=== PATIENT | male | born 1935 | race Caucasian/White ===

== ENCOUNTER → 2023-11-04 12:50 | Outpatient (REF) | payer OTHER, SELFPAY | LOC: DHCBC HW 12:50 | PROVIDERS: ATTENDING PHYSICIAN Internal Medicine; FAMILY PHYSICIAN Family Medicine | DX: I34.2 Nonrheumatic mitral (valve) stenosis (principal); I48.0 Paroxysmal atrial fibrillation | CPT/HCPCS: 93306 ==

== ENCOUNTER 2024-02-24 08:31 | Emergency (ER) | payer OTHER, SELFPAY ==
[2024-02-24 08:36] VITALS: BP 128/77
--- NOTE | 2024-02-24 09:22 | ED.GENMED ---
History of Present Illness
General
Chief Complaint: Skin Surface Trauma
Source: patient
Exam Limitations: none
Time Seen by Provider: 02/24/24 09:09
History of Present Illness
History of Present Illness:
See MDM
Past History
Past History
ED Past Medical History: CVA, HTN and Hypercholesterolemia
ED Past Surgical History: None and Orthopedic
Social History
Tobacco: Non-smoker
Alcohol: None
Drug: None
Phy Exam
Physical Exam
Physical Exam:
See MDM
Course
Orders/Labs/Results
Orders:
Orders
02/24/24 09:21
Amoxicillin 875 mg/Clav 125 mg [Augmentin 875 mg/125 mg] 1 tablet PO NOW STA
Tetanus/Diphth/Acelpertussis [Adacel] 0.5 ml IM .ONCE ONE
Hand, Left 3 View [CR Hand - Left Min 3 Views] Urgent
Comment:
Reason For Exam: trauma and pain to left hand
Vital Signs
Initial and Last Documented VS:
Initial Vital Signs
Temp Pulse Resp BP Pulse Ox
98.6 F 86 18 128/77 93
02/24/24 08:36 02/24/24 08:36 02/24/24 08:36 02/24/24 08:36 02/24/24 08:36
Last Documented Vital Signs
Temp Pulse Resp BP Pulse Ox
98.6 F 86 18 128/77 93
02/24/24 08:36 02/24/24 08:36 02/24/24 08:36 02/24/24 08:36 02/24/24 08:36
MDM/Problems Addressed
Differential Diagnosis Includes:
HPI and MDM Narrative:
88-year-old male presenting with left hand injury. Patient slipped out of bed and hit his hand against the nightstand table. Patient thinks he might of bumped his head as well but is unconcerned about his head injury. He is on Eliquis. He went
to urgent care and he was sent to the emergency department for further evaluation.
On exam, there is a large skin tear to the dorsum of his hand. The edges were unfurled and placed back on the wound with adequate coverage. The hand is neurovascularly intact. Will obtain x-ray and start Augmentin and update tetanus
Physical exam
General: Well appearing and non-toxic
HEENT: protecting airway
Neck: appears supple
CV: No evidence of cyanosis
Resp: No accessory muscle use
Abd: Non-distended
Extremities: Large skin tear to dorsum of left hand. Hand otherwise neurovascularly intact
Neuro: alert
Psych: Normal affect
Skin: Skin tear to left hand
Problems Addressed including Acute and Chronic Conditions affecting care:
1. Left hand skin tear
Acuity: acute
Prognosis: stable
Details: The edges of the skin were unfurled which covered the wound. Will obtain x-ray and update tetanus and start Augmentin
2. Head injury
Acuity: acute
Prognosis: stable
Details: Although minor, I suggested CT given age and being on Eliquis. Patient acknowledged my concerns but declined CT
3. [ ]
Acuity: acute
Prognosis: stable
Details:
4. [ ]
Acuity: acute
Prognosis: stable
Details:
5. [ ]
Acuity:
Prognosis:
Details:
Updates
Differential Diagnosis (but not limited to): Hand fracture, skin tear, laceration
Testing considered: CT head
Drug therapy (if applicable): OTC meds, please see d/c instruction regarding Rx drugs
Amount and/or Complexity of Data Reviewed
Clinical info obtained from: Patient
External data reviewed: N/A
Labs I independently reviewed (but not limited to): [ ]
Radiology: N/A
Pulse Ox: not hypoxic
EKG independently reviewed: N/A
Rn Support Services: N/A
Critical Care: N/A
Risk of Complication:
Social Determinants of health: Good social support
Discussed with other providers: N/A
Escalation of Care includes Admit/Obs: After being observed in the Emergency Department, pt stable for discharge.
Occasional wrong word or 'sound a like' substitutions may have occurred due to the inherent limitations of voice recognition software. Read the chart carefully and recognize, using context, where substitutions have occurred.
*Critical Care Note
Total Time (30-74mins, 75-104mins- exclusive of procedures): Not Applicable
ED Attending Note
-
Portions of this chart may have been created with voice recognition software.� Occasional wrong word or��sound alike� substitutions may have occurred due to the inherent limitations of voice recognition software.
Discharge Plan
Departure
Patient Disposition: Home (Routine Discharge)
Date of Disposition: 02/24/24
Time of Disposition: 10:22
Patient with high blood pressure during this ER visit?: No
Discharge Problem:
Avulsion of skin of hand
Instructions: Wound Care (DC)
Prescriptions:
New
amoxicillin-pot clavulanate 875-125 mg tablet
1 tab PO BID Qty: 14 0RF
No Action
losartan 50 MG tablet
50 mg PO HS
allopurinol 100 MG tablet
100 mg PO DAILY
spironolactone 25 MG tablet
25 mg PO DAILY
glimepiride 2 MG tablet
2 mg PO DAILY
simvastatin 20 MG tablet
20 mg PO HS
metformin 1,000 MG tablet
1,000 mg PO DAILY
hydralazine 50 MG tablet
50 mg PO BID
apixaban [Eliquis] 2.5 MG tablet
2.5 mg PO BID
Referrals:
Jesse Melgar MD [Family Provider] -
Activity Restrictions/Additional Instructions:
Watch for signs of infection: fever over 100.5', increasing pain, red streaks around wound, swelling, or increasing drainage of pus. If any of these happen, return to ED promptly. Make sure that you take all your antibiotics as directed and finish
your prescription even if you feel better before the bottle is empty
Please return for any worsening symptoms.
You may return at any time if you have further concerns.
Please follow up with your doctor at the first available appointment, preferably this week.
Thank you for choosing [facility].
Discharge Date and Time
Print Language: CYMRO
[2024-02-24] MEDS: AUGMENTIN 875 MG/125 MG 1 TABLET PO (09:27)
[2024-02-24] MEDS: ADACEL 0.5 ML IM (09:27)
== END 2024-02-24 10:33 | disposition home or self-care (01) ==
LOC: EMR 08:31
PROVIDERS: EMERGENCY PHYSICIAN Student in an Organized Health Care Education/Training Program; FAMILY PHYSICIAN Family Medicine
DX: S61.402A Unspecified open wound of left hand, initial encounter (principal); W06.XXXA Fall from bed, initial encounter; Z23 Encounter for immunization; I10 Essential (primary) hypertension; E78.00 Pure hypercholesterolemia, unspecified; Z86.73 Personal history of transient ischemic attack (TIA), and cerebral infarction without residual deficits; Z79.01 Long term (current) use of anticoagulants
CPT/HCPCS: 99283; 90471; 73130; 90715

== ENCOUNTER 2024-07-16 09:56 | Emergency (ER) | payer OTHER, SELFPAY ==
[2024-07-16 10:00] VITALS: BP 113/87
--- NOTE | 2024-07-16 10:41 | ED.SKININJ ---
HPI-Injury
General
Chief Complaint: Skin Problem
Source: patient
Exam Limitations: none
Time Seen by Provider: 07/16/24 10:40
Nursing documentation reviewed up to this point in time: agreed with
History of Present Illness-Injury
Initial Injury comments:
88-year-old male with history of CVA, afib on Eliquis, prostatectomy, hernia repair, right TKA are presents for wound right cortez. He noted a wound bleeding while in shower 1 week ago, does not recall how it happened. Went to , the area was glued.
Last night he noted swelling, redness from the wound down to and including the ankle. Denies fever/chills. Less swollen today after elevation during the night. Denies significant pain.
Past History
Past History
ED Past Medical History: CVA, HTN and Hypercholesterolemia
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
Social History
Tobacco: Non-smoker
Alcohol: None
Drug: None
Personal:
Living: with family
Review of Systems
Review of Systems
Allergies reviewed?: Yes
All Other Systems: ROS reviewed and negative except as documented in HPI and ROS
Constitutional: Denies fever or chills
Respiratory: Denies trouble breathing
Cardiac: Denies chest pain
ABD/GI: Reports diarrhea (past 2 weeks, controlled with Imodium); Denies abdominal pain, nausea, bloody stools, black stools or anorexia
: Denies dysuria, difficulty voiding or urgency
Musculoskeletal: Reports no symptoms
Skin: Reports other (wound right cortez)
Neurological: Reports no symptoms
Phy Exam
Physical Exam
Physical Exam:
GENERAL: No acute distress. A&Ox3.
CONSTITUTIONAL: Afebrile.
EYES: clear, conjunctivae normal
ENMT: moist mucus membranes
RESPIRATORY: Regular respirations, nonlabored, lungs clear.
CARDIOVASCULAR: Regular rate and rhythm, no murmurs, no rubs.
GI: Soft, nontender, normal BS
MUSCULOSKELETAL: Moves with ease. Well perfused.
SKIN: Warm, dry, pink, quarter sized mid cortez wound covered with thin layer of glue/eschar. surrounding mild erythema and swelling mainly from wound to ankle, no lymphangitis. Mild tenderness.
PSYCH: Normal mood and affect. Well kept, interactive and appropriate
NEUROLOGIC: Awake, alert and oriented. No focal neurological deficits
Course
Vital Signs
Initial and Last Documented VS:
Initial Vital Signs
Temp Pulse Resp BP Pulse Ox
98.3 F 86 16 113/87 98
07/16/24 10:00 07/16/24 10:00 07/16/24 10:00 07/16/24 10:00 07/16/24 10:00
Last Documented Vital Signs
Temp Pulse Resp BP Pulse Ox
98.3 F 86 16 113/87 98
07/16/24 10:00 07/16/24 10:00 07/16/24 10:00 07/16/24 10:00 07/16/24 10:00
MDM/Problems Addressed
Differential Diagnosis Includes:
wound inflammation, cellulitis (pt concerned for DVT)
MDM/Problems Addressed:
88-year-old male with history of CVA, afib on Eliquis, prostatectomy, hernia repair, right TKA are presents for wound right cortez. He noted a wound bleeding while in shower 1 week ago, does not recall how it happened. Went to , the area was glued.
Last night he noted swelling, redness from the wound down to and including the ankle. Denies fever/chills. Less swollen today after elevation during the night. Denies significant pain.
Afebrile, NAD
Area from wound to and including ankle are +1 swollen, no significant tenderness, on Eliquis, no calf pain, swelling or tenderness, no suspicion of DVT
Area debrided of thin layer of glue/eschar, soft surgical Betadine scrub used then NSS irrigation. ATB ointment and DSD applied.
Exam is more consistent with inflammation/very early infection: will give Keflex 500 QID x 5 days only to avoid worse diarrhea/SE. (pt has had intermittent non bloody diarrhea x 2 weeks, denies abd pain. Taking Imodium, will f/u w PCP)
*Critical Care Note
Total Time (30-74mins, 75-104mins- exclusive of procedures): Not Applicable
ED Attending Note
-
Portions of this chart may have been created with voice recognition software.� Occasional wrong word or��sound alike� substitutions may have occurred due to the inherent limitations of voice recognition software.
Discharge Plan
Departure
Patient Disposition: Home (Routine Discharge)
Date of Disposition: 07/16/24
Time of Disposition: 11:03
Patient with high blood pressure during this ER visit?: No
Condition: Good
Discharge Problem:
Wound of right lower extremity, Cellulitis of right lower extremity
Instructions: Wound Care (DC), Cellulitis (Skin Infection), Adult (DC)
Prescriptions:
New
cephalexin 500 mg capsule
500 mg PO QID 5 Days Qty: 20 0RF
No Action
losartan 50 MG tablet
50 mg PO HS
allopurinol 100 MG tablet
100 mg PO DAILY
spironolactone 25 MG tablet
25 mg PO DAILY
glimepiride 2 MG tablet
2 mg PO DAILY
simvastatin 20 MG tablet
20 mg PO HS
metformin 1,000 MG tablet
1,000 mg PO DAILY
hydralazine 50 MG tablet
50 mg PO BID
apixaban [Eliquis] 2.5 MG tablet
2.5 mg PO BID
amoxicillin-pot clavulanate 875-125 mg tablet
1 tab PO BID Qty: 14 0RF
Referrals:
Jesse Melgar MD [Family Provider] - As needed
Activity Restrictions/Additional Instructions:
As we discussed, this is mainly inflammation, maybe very early infection (cellulitis).
I sent a prescription to your pharmacy for the antibiotic Keflex to take 4 times a day for 5 days
Eat yogurt daily or take a probiotic while taking the antibiotic to avoid antibiotic related diarrhea
Seek medical care immediately for sign of infection which may include increasing redness, swelling, pain, pus drainage, red streak up the leg or fever.
Change the dressing tomorrow then cleanse the area daily with soap and water, dry well, apply a small amount of antibiotic ointment and a Band-Aid until well-healed
When you are resting air to dry out but keep it covered at all times when up and around
Interventions
Interventions:
*Risk Screen - Suicide Last Done: 07/16/24 10:00
*General Assessment Last Done: 07/16/24 11:12
*Neglect/Abuse Screening Last Done: 07/16/24 10:00
ED- Fall Risk Assessment Last Done: 07/16/24 11:12
*ED COVID-19 Vaccine History Last Done: 07/16/24 11:12
*Nursing Disposition Last Done: 07/16/24 11:12
ED-Skin Assessment Last Done: 07/16/24 11:12
Discharge Date and Time
Discharge Date/Time: 07/16/24 11:13
Print Language: SETSWANA
== END 2024-07-16 11:13 | disposition home or self-care (01) ==
LOC: EMR 09:56
PROVIDERS: EMERGENCY PHYSICIAN Student in an Organized Health Care Education/Training Program; FAMILY PHYSICIAN Family Medicine
DX: L03.115 Cellulitis of right lower limb (principal); I10 Essential (primary) hypertension; E78.00 Pure hypercholesterolemia, unspecified; Z79.01 Long term (current) use of anticoagulants; Z86.73 Personal history of transient ischemic attack (TIA), and cerebral infarction without residual deficits; Z96.651 Presence of right artificial knee joint
CPT/HCPCS: 99282

== ENCOUNTER → 2025-01-31 09:02 | Outpatient (REF) | payer OTHER, SELFPAY | LOC: HWRCS 09:02 | PROVIDERS: ATTENDING PHYSICIAN Nurse Practitioner; FAMILY PHYSICIAN Family Medicine | DX: I48.0 Paroxysmal atrial fibrillation (principal); R60.0 Localized edema; R00.1 Bradycardia, unspecified; I44.0 Atrioventricular block, first degree | CPT/HCPCS: 93306 ==

== ENCOUNTER → 2025-02-02 09:46 | Outpatient (REF) | payer OTHER, SELFPAY | LOC: RCS 09:46 | PROVIDERS: ATTENDING PHYSICIAN Nurse Practitioner; FAMILY PHYSICIAN Family Medicine | DX: I48.0 Paroxysmal atrial fibrillation (principal); R60.0 Localized edema; R00.1 Bradycardia, unspecified; I44.0 Atrioventricular block, first degree | CPT/HCPCS: 93225; 93226 ==

== ENCOUNTER → 2025-02-06 09:17 | Outpatient (REF) | payer OTHER, SELFPAY | LOC: HWRAD 09:17 | PROVIDERS: ATTENDING PHYSICIAN Internal Medicine; FAMILY PHYSICIAN Family Medicine | DX: N18.32 Chronic kidney disease, stage 3b (principal) | CPT/HCPCS: 76775 ==

== ENCOUNTER → 2025-04-01 14:27 | Outpatient (REF) | payer OTHER, SELFPAY | LOC: HWRAD 14:27 | PROVIDERS: ATTENDING PHYSICIAN Podiatrist Foot & Ankle Surgery; FAMILY PHYSICIAN Family Medicine | DX: D21.22 Benign neoplasm of connective and other soft tissue of left lower limb, including hip (principal) | CPT/HCPCS: 76882 ==

== ENCOUNTER 2025-06-20 22:31 | Inpatient (IN) | payer OTHER, SELFPAY ==
[2025-06-20 18:05] VITALS: BP 140/69
[2025-06-20 18:12] VITALS: BMI 29.3
--- NOTE | 2025-06-20 18:38 | ED.GENMED ---
History of Present Illness
General
Chief Complaint: Abdominal Symptoms
Source: patient
Exam Limitations: none
Time Seen by Provider: 06/20/25 18:18
Nursing documentation reviewed up to this point in time: agreed with
History of Present Illness
History of Present Illness:
Note:
CHIEF COMPLAINT(S)
Double vision and difficulty breathing.
HISTORY OF PRESENT ILLNESS
The patient is an 89-year-old male who presented with symptoms of double vision and reported difficulty in focusing. He described the vision issue as 'just double vision and its part focusing.' There was no mention of visual disturbances with one
eye closed, according to his . Additionally, the patient reported experiencing bowel-related issues, mentioning diarrhea. He did not experience nausea at the time of evaluation. He has a history of atrial fibrillation and is currently on a blood
thinner, Apixaban, for its management.
PAST MEDICAL AND SURGICAL HISTORY
The patient has a history of atrial fibrillation, for which he takes Apixaban. He also mentioned having a previous episode of transient attention lapses approximately five years ago.
SOCIAL HISTORY
The patient has a history of smoking but quit approximately 30 years ago.
PHYSICAL EXAM
General: Alert, no acute distress.
Cardiovascular: S1/S2, irregular.
Respiratory: Mild wheezing; the patient requires supplemental oxygen due to a slight decrease in oxygen saturation.
Neurological: No facial droop or asymmetry; intact cranial nerves as evidenced by patient following commands to smile and close eyes tightly.
PLAN
The plan is to admit the patient to the hospital overnight for further observation and evaluation. Diagnostic tests will include a chest X-ray to assess for possible pneumonia or heart failure and a CT scan of the head to evaluate his recent visual
disturbances. The patients oxygen levels will be continually monitored, and he will remain on supplemental oxygen as needed.
DIFFERENTIAL DIAGNOSIS
The Differential Diagnosis includes, in no particular order and is not limited to:
1. Transient Ischemic Attack (TIA)
2. Stroke
3. Pneumonia
4. Congestive Heart Failure
5. Atrial Fibrillation-related thromboembolic event
6. Medication side effects (apixaban)
7. Glaucoma or other ocular issues
8. Chronic Obstructive Pulmonary Disease (COPD) exacerbation
9. Gastroenteritis
10. Peripheral Vertigo
Disposition:
SUMMARY OF ENCOUNTER
An 89-year-old male presented to the emergency department with symptoms of double vision, difficulty focusing, and mild wheezing. The patient was evaluated for potential causes of these symptoms, including transient ischemic attack, stroke,
pneumonia, and congestive heart failure. His cardiac history includes atrial fibrillation managed with Apixaban. During the emergency department evaluation, it was determined that his symptoms might be related to pneumonia and potential aspiration
pneumonia.
DISPOSITION
Admit to hospitalists.
ASSESSMENT
The patient is primarily assessed for pneumonia and hypoxia, with a possible diagnosis of aspiration pneumonia related to his symptoms and risk factors.
EMERGENCY TREATMENTS ADMINISTERED
rocephin, Azithromycin, and Metronidazole were ordered to cover for possible aspiration pneumonia.
PLAN
The plan is to admit the patient to the hospital for further observation and management of pneumonia and hypoxia to ensure proper treatment and stabilization.
PATIENT EDUCATION AND COUNSELING
The patient and his family were informed about the possible diagnosis of pneumonia and the need for further inpatient evaluation and treatment. They were advised on the potential implications of aspiration pneumonia and the importance of careful
monitoring and treatment.
MEDICATION RECONCILIATION
Medications ordered in the emergency department include:
1. rocephin
2. Azithromycin
3. Metronidazole
MEDICAL DECISION MAKING
1. Number and Complexity of Problems Addressed:
Chronic conditions affecting care: Atrial fibrillation.
Differential Diagnosis:
- Transient Ischemic Attack (TIA)
- Stroke
- Pneumonia
- Congestive Heart Failure
- Atrial Fibrillation-related thromboembolic event
- Medication side effects (Apixaban)
- Chronic Obstructive Pulmonary Disease (COPD) exacerbation
- Gastroenteritis
- Peripheral Vertigo
2. Data:
Category 1
- Reviewed radiology and labs to assess for pneumonia and underlying causes of hypoxia.
3. Risk:
Consideration of admission for further observation due to the complexity and risk of the patients presenting complaints and underlying history, ensuring that pneumonia and hypoxia are properly managed in the inpatient setting.
DIAGNOSIS
1. Pneumonia (ICD-10: J18.9)
2. Hypoxia (ICD-10: R09.02)
3. Possible Aspiration Pneumonia (ICD-10: J69.0)
4. Atrial Fibrillation (ICD-10: I48.91)
Past History
Past History
ED Past Medical History: CVA, HTN and Hypercholesterolemia
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
Social History
Tobacco: Non-smoker
Alcohol: None
Drug: None
Personal:
Living: with family
Phy Exam
Physical Exam
Physical Exam:
.
Course
Orders/Labs/Results
Orders:
Orders
06/20/25 18:15
Electrocardiogram (*1) Urgent
Reason for Study: Shortness of Breath
EKG- Treatment ONCE
06/20/25 18:33
Complete Blood Count/With Diff Urgent
Comprehensive Metabolic Panel Urgent
06/20/25 18:39
CT Head W/o Iv Contrast Urgent
Comment:
Reason For Exam: double vision, dry heaves
06/20/25 18:40
CR Chest - 2 Views Urgent
Comment:
Reason For Exam: hypoxia
06/20/25 20:57
Azithromycin 500 mg/250 ml [Zithromax Infusion] 500 mg in 250 ml IV NOW
CefTRIAXone [Rocephin] 2,000 mg IV NOW STA
MetroNIDAZOLE 500 MG/100 ML [Flagyl 500 mg] 100 ml IV NOW
06/20/25 21:00
Lactic Acid Q4H
Comment: CANCEL 2nd LACTIC ACID IF 1st LACTIC ACID IS LESS THAN 2
Blood Culture Q30M
SARAH Source: Blood/Venous
Specimen Description:
06/20/25 21:30
Blood Culture Q30M
SARAH Source: Blood/Venous
Specimen Description:
06/21/25 01:00
Lactic Acid Q4H
Comment: CANCEL 2nd LACTIC ACID IF 1st LACTIC ACID IS LESS THAN 2
Abnormal Lab Results
06/20/25
18:33
WBC 11.0 H 10^3/uL
(4.8-10.8)
RBC 3.54 L 10^6/uL
(4.70-6.10)
Hgb 11.9 L g/dL
(13.0-18.0)
Hct 35.7 L %
(39.0-52.0)
MCV 100.8 H fL
(80.0-94.0)
MCH 33.6 H pg
(27.0-31.0)
MPV 11.4 H fL
(7.4-10.4)
Abs Immat Gran (auto) 0.1 H 10^3/uL
(0-0.05)
Absolute Neuts (auto) 7.9 H 10^3/uL
(1.4-6.5)
Absolute Monos (auto) 1.3 H 10^3/uL
(0.1-0.6)
Lymphocytes % 14.1 L %
(20.5-51.1)
Monocytes % 11.8 H %
(1.7-9.3)
BUN 32 H mg/dl
(9-20)
Creatinine 2.2 H mg/dL
(0.7-1.3)
Glucose 155 H mg/dl
(70-99)
AST 16 L U/L
(17-59)
06/20/25 18:33
06/20/25 18:33
Vital Signs
Initial and Last Documented VS:
Initial Vital Signs
Temp Pulse Resp BP Pulse Ox
97.8 F 68 16 140/69 94
06/20/25 18:05 06/20/25 18:05 06/20/25 18:05 06/20/25 18:05 06/20/25 18:05
Last Documented Vital Signs
Temp Pulse Resp BP Pulse Ox
97.8 F 60 15 135/59 95
06/20/25 18:05 06/20/25 20:00 06/20/25 20:00 06/20/25 20:00 06/20/25 20:11
*Pulse Oximetry
SaO2: 88
Oxygen Mode of Delivery: Room air
Patient hypoxic: yes
*Critical Care Note
Total Time (30-74mins, 75-104mins- exclusive of procedures): Not Applicable
ED Attending Note
-
Portions of this chart may have been created with voice recognition software.� Occasional wrong word or��sound alike� substitutions may have occurred due to the inherent limitations of voice recognition software.
Discharge Plan
Departure
Patient Disposition: Admit
Date of Disposition: 06/20/25
Time of Disposition: 20:59
Admit to: Telemetry
Presentation/result/management discussed w/ accepting MD/DO: Hospitalist
Patient with high blood pressure during this ER visit?: Yes
Condition: Fair
Discharge Problem:
Pneumonia, Vomiting, Hypoxia
Prescriptions:
No Action
losartan 50 MG tablet
50 mg PO HS
allopurinol 100 MG tablet
100 mg PO DAILY
spironolactone 25 MG tablet
25 mg PO DAILY
glimepiride 2 MG tablet
2 mg PO DAILY
simvastatin 20 MG tablet
20 mg PO HS
metformin 1,000 MG tablet
1,000 mg PO DAILY
hydralazine 50 MG tablet
50 mg PO BID
apixaban [Eliquis] 2.5 MG tablet
2.5 mg PO BID
amoxicillin-pot clavulanate 875-125 mg tablet
1 tab PO BID Qty: 14 0RF
cephalexin 500 mg capsule
500 mg PO QID 5 Days Qty: 20 0RF
Referrals:
Jesse Melgar MD [Family Provider, Family Practice]
Interventions
Interventions:
*Risk Screen - Suicide Last Done: 06/20/25 18:05
*General Assessment Last Done: 06/20/25 18:05
*Neglect/Abuse Screening Last Done: 06/20/25 18:05
*ED- Fall Risk Assessment Last Done: 06/20/25 18:05
*ED COVID-19 Vaccine History Last Done: 06/20/25 18:05
*ED Influenza Vaccine History Last Done: 06/20/25 18:05
JK-Eceeby-Uqxzbwvioq Assessment Last Done: 06/20/25 18:05
Discharge Date and Time
Print Language: TAMAZIGHT
[2025-06-20 18:47] LABS: Hematocrit 35.7 % (39.0-52.0); Hemoglobin 11.9 g/dL (13.0-18.0); Mean Corp Hgb Conc. 33.3 g/dL (33.0-37.0); Mean Corpuscular Volume 100.8 fL (80.0-94.0); Nucleated Red Blood Cells % 0 % (-); Platelet Count 270 10^3/uL (130-400); Red Cell Dist. Width 13.6 % (11.5-14.5)
[2025-06-20 18:59] LABS: ALT (SGPT) 10 U/L (0-50); AST (SGOT) 16 U/L (17-59); Albumin 3.7 g/dl (3.5-5.0); Alkaline Phosphatase 88 U/L (38-126); Blood Urea Nitrogen 32 mg/dl (9-20); Calcium 9.0 mg/dl (8.4-10.2); Carbon Dioxide 25 mmol/L (22-30); Chloride 105 mmol/L (98-107); Estimated Creatinine Clearance 26 ml/min; Glucose 155 mg/dl (70-99); Potassium 4.2 mmol/L (3.5-5.1); Sodium 138 mmol/L (135-145); Total Protein 7.0 g/dl (6.3-8.2); eGFR 28.28
[2025-06-20 19:00] VITALS: BP 150/69
[2025-06-20 20:00] VITALS: BP 135/59
[2025-06-20 21:00] VITALS: BP 136/61
[2025-06-20] MEDS: FLAGYL 500 MG 100 IV (21:15)
[2025-06-20] MEDS: ROCEPHIN 2000 MG IV (21:15)
--- NOTE | 2025-06-20 21:50 | HPS.HSE ---
Family Physician
-
Family Physician: Jesse Melgar
Chief Complaint
-
nausea and dry heaves
History of Present Illness
Mr. 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 Patient states that he
was given Zofran in the ambulance and started to feel better. Upon arrival he was noticed to be wheezing and with low SpO2, placed on Oxygen.
Patient states he has felt short of breath with exertion over the past couple of weeks. No fevers. No chest pain. No cough/congestion. No abdominal pain. He was having diarrhea and recently taken off his Metformin.
Currently his nausea is completely resolved and he is hungry.
Medical History
Past Medical History
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
Additional Past Medical History:
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
Past Surgical History: Reports Other
Social History
Tobacco: Former Smoker
Family History
Family History: Not pertinent
Allergies / Home Medications
Allergies reflects when Allergies were last updated in [facility].
Home Medications with original date entered in [facility]
Allergy/Medication List:
Allergies
Allergy/AdvReac Type Severity Reaction Status Date / Time
No Known Allergies Allergy Verified 07/16/24 10:03
Home Medications
allopurinol 100 mg tablet 100 mg PO DAILY 09/09/21
apixaban 2.5 mg tablet (Eliquis) 2.5 mg PO BID 09/09/21
glimepiride 2 mg tablet 2 mg PO BID 09/09/21
hydralazine 50 mg tablet 50 mg PO BID 09/09/21
losartan 50 mg tablet 50 mg PO DAILY 09/09/21
simvastatin 20 mg tablet 20 mg PO HS 09/09/21
spironolactone 25 mg tablet 25 mg PO DAILY 09/09/21
amlodipine 5 mg tablet 5 mg PO DAILY 06/20/25
glycopyrrolate 9 mcg-formoterol 4.8 mcg HFA aerosol inhaler (Bevespi Aerosphere) 2 puff inhalation BID 06/20/25
indapamide 2.5 mg tablet 2.5 mg PO DAILY 06/20/25
tramadol 50 mg tablet 50 mg DAILY 06/20/25
Review of Systems
-
History Source: Patient
A 12 point ROS was completed and negative except as noted: Yes
Physical Exam
Vital Signs
Vital Signs
Temp Pulse Resp BP Pulse Ox
97.8 F 61 19 136/61 93
06/20/25 18:05 06/20/25 21:15 06/20/25 21:15 06/20/25 21:00 06/20/25 21:15
Physical Exam
General: No Apparent Distress
Respiratory: Wheezes (scattered mild end expiratory )
Cardiac: S1/S2 and Regular Rhythm
GI: Soft
Musculoskeletal: No Edema
Skin: Warm and Dry; No Rash
Neuro: AO x 3
Psych: Calm
Laboratory Results
-
06/20/25 18:33
06/20/25 18:33
Laboratory Results
Lactic Acid 0.9 mmol/L (0.7-2.0) 06/20/25 21:07
Total Bilirubin 0.6 mg/dl (0.2-1.3) 06/20/25 18:33
AST 16 U/L (17-59) L 06/20/25 18:33
ALT 10 U/L (0-50) 06/20/25 18:33
Alkaline Phosphatase 88 U/L (38-126) 06/20/25 18:33
Data Reviewed
-
Diagnostic Radiology: Report Reviewed by me
Lab Data: Labs Reviewed by me
Impression/Plan
-
Mr. 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
Triage VS: T 97.8, P 68, RR 16, BP 140/69, SpO2 94%
LABS: WBC 11, Hg 11.9, PLT 270, Na 138, K+ 4.2, Cl 105, CO2 25, BUN 32, Cr 2.2 (baseline), Glucose 155, lactate 0.[address]
IMPRESSION:
1. No CT evidence for acute intracranial hemorrhage or transcortical infarct.
2. SEVERE WHITE MATTER LEUKOARAIOSIS in the frontal and parietal lobes.
3. 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
4. Mild to moderate diffuse cerebral and cerebellar volume loss.
CXR
IMPRESSION:
1. Moderate ground-glass opacity throughout the left lower lobe and mild ground-glass opacity in the right lower lobe. Diagnostic possibilities are (1) left lower lobe pneumonia (possibly aspiration pneumonia), (2) an inflammatory
pneumonitis/pulmonary fibrosis, or (3) subsegmental atelectasis and scarring.
2. Severe hyperlucency in the upper lungs (probably severe emphysema).
3. Previous right upper lobe pulmonary wedge resection.
4. Mild cardiomegaly.
5. Severe calcific atherosclerotic plaque in the coronary arteries and thoracic aorta.
MAR: Ceftriaxone, Azithromycin, Metronidazole
Pneumonia, possible Aspiration Pneumonia
Leukocytosis
Mild hypoxic Respiratory Insufficiency
Dry Heaves and diaphoresis 2/2 above now resolved
-admit to telemetry
-continue coverage for CAP and possible aspiration pneumonia with Ceftriaxone/Azithro + Flagyl
-follow up cultures
-mucinex, acapella
-patient will need follow up CXR. Consider chest CT/ Pulmonary consult if no improvement despite antibiotics.
Former Smoker
COPD
-mild wheezing on exam
-continue COMIC BOOK ARTIST inhaler
-standing duonebs, and duonebs PRN
-wean O2 as able
CKD III
-creatinine at baseline
Atrial Fibrillation on Eliquis
-continue COMIC BOOK ARTIST Eliquis
Essential HTN
-COMIC BOOK ARTIST Hydralazine, Amlodipine
-COMIC BOOK ARTIST Indapmide - patient looks mildly overloaded, not dehydrated on exam. Recent TTE 01/31/25 with normal systolic function, no significant valvular disease
-COMIC BOOK ARTIST Spironolactone
-*med rec needs to be confirmed to see if patient taking Losartan
NIDDM
-patient's Metformin recently stopped for diarrhea and his Glimepiride was increased to 2mg PO BID
-will order 1mg PO QD in hospital with ISS low
DVT PPx Eliquis
DNR - confirmed on admission
76 minutes spent on patient care
[2025-06-20 22:00] VITALS: BP 132/64
[2025-06-20] MEDS: ZITHROMAX INFUSION 250 IV (22:12)
[2025-06-20] MEDS: ELIQUIS 2.5 MG PO (22:16)
[2025-06-20 22:30] LABS: Glucose - Point of Care 166 mg/dl (70-99)
[2025-06-20] MEDS: DUONEB 3 ML INH (22:30)
[2025-06-20 22:39] LABS: COVID-19 Antigen Negative (Negative)
[2025-06-21] VITALS (9 sets, daily range): BP systolic 117–144; BP diastolic 59–70; PULSE 67; O2SAT 95; BMI 34.8
[2025-06-21 07:59] LABS: Hematocrit 35.8 % (39.0-52.0); Hemoglobin 11.9 g/dL (13.0-18.0); Mean Corp Hgb Conc. 33.2 g/dL (33.0-37.0); Mean Corpuscular Volume 98.1 fL (80.0-94.0); Nucleated Red Blood Cells % 0 % (-); Platelet Count 273 10^3/uL (130-400); Red Cell Dist. Width 13.7 % (11.5-14.5)
[2025-06-21] MEDS: SPIRIVA RESPIMAT 2.5 MCG 2 PUFF INH (07:59)
[2025-06-21] MEDS: STRIVERDI RESPIMAT 2 PUFF INH (07:59)
[2025-06-21] MEDS: DUONEB 3 ML INH ×4 (08:00→20:16)
[2025-06-21 08:03] LABS: Glucose - Point of Care 137 mg/dl (70-99)
[2025-06-21] MEDS: NOVOLOG FLEXPEN-LOW RESISTANCE SC ×2 (08:09→16:44)
[2025-06-21] MEDS: FLAGYL 500 MG 100 IV ×3 (08:35→23:07)
[2025-06-21] MEDS: ZYLOPRIM 100 MG PO (08:35)
[2025-06-21] MEDS: APRESOLINE 50 MG PO ×2 (08:35→19:45)
[2025-06-21] MEDS: ELIQUIS 2.5 MG PO ×2 (08:36→19:45)
[2025-06-21] MEDS: MUCINEX 600 MG PO ×2 (08:36→19:45)
[2025-06-21] MEDS: AMARYL 1 MG PO (08:36)
[2025-06-21] MEDS: ALDACTONE 25 MG PO (08:36)
[2025-06-21] MEDS: NORVASC 5 MG PO (08:36)
[2025-06-21 08:39] LABS: Blood Urea Nitrogen 29 mg/dl (9-20); Calcium 8.9 mg/dl (8.4-10.2); Carbon Dioxide 26 mmol/L (22-30); Chloride 106 mmol/L (98-107); Estimated Creatinine Clearance 31 ml/min; Glucose 130 mg/dl (70-99); Magnesium 1.7 mg/dl (1.6-2.3); Potassium 4.3 mmol/L (3.5-5.1); Sodium 139 mmol/L (135-145); eGFR 28.28
[2025-06-21 09:04] LABS: TSH 3.44 uIU/ml (0.47-4.68)
--- NOTE | 2025-06-21 09:41 | PTCARENOTE ---
Per ELEMENTARY ART TEACHER patient with no s/s of dysphagia or aspiration w/ clinical bedside swallow eval. Patient declining instrumental testing to r/o silent aspiration given risk factors (COPD, R lung resection). Continue regular/thin liquid diet w/ general
aspiration precautions.
--- NOTE | 2025-06-21 09:47 | PTOTSP ---
Dysphagia Evaluation
Patient is an 89 year old male admitted with concern for aspiration PNA. Chronic dysphagia risk factors include prior R frontal lobe infarct, COPD, prior R lung wedge resection. Patient denied acute/chronic dysphagia or aspiration symptoms and
reported last known PNA as greater than 5 years ago. No overt signs concerning for dysphagia or aspiration observed today though silent aspiration cannot be ruled out. Patient declined instrumental swallow testing to r/o silent aspiration.
Recommend:
1. Regular, Thin Liquids
2. General aspiration precautions
3. Medications as best tolerated
4. Will sign off. Please reconsult via video swallow study as appropriate.
[2025-06-21 10:31] LABS: Glycohemoglobin (HgbA1c) 7.1 % (4.0-5.9)
[2025-06-21 11:49] LABS: Glucose - Point of Care 171 mg/dl (70-99)
[2025-06-21] MEDS: NOVOLOG FLEXPEN-LOW RESISTANCE 1 UNITS SC (12:30)
--- NOTE | 2025-06-21 12:54 | W.PN.HOSP.TC ---
Today's Communication/Plan
-
Monitor vital signs and see plan
Wean oxygen as tolerated
PT
Continue with antibiotic
Assessment / Plan
Assessment / Plan
General: No Apparent Distress
Respiratory: Clear to auscultation, no wheezing
Cardiac: S1/S2 and Regular Rhythm
GI: Soft
Musculoskeletal: No Edema
Neuro: AO x 3
Psych: Calm
HEAD CT
IMPRESSION:
1. No CT evidence for acute intracranial hemorrhage or transcortical infarct.
2. SEVERE WHITE MATTER LEUKOARAIOSIS in the frontal and parietal lobes.
3. 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
4. Mild to moderate diffuse cerebral and cerebellar volume loss.
CXR
IMPRESSION:
1. Moderate ground-glass opacity throughout the left lower lobe and mild ground-glass opacity in the right lower lobe. Diagnostic possibilities are (1) left lower lobe pneumonia (possibly aspiration pneumonia), (2) an inflammatory
pneumonitis/pulmonary fibrosis, or (3) subsegmental atelectasis and scarring.
2. Severe hyperlucency in the upper lungs (probably severe emphysema).
3. Previous right upper lobe pulmonary wedge resection.
4. Mild cardiomegaly.
5. Severe calcific atherosclerotic plaque in the coronary arteries and thoracic aorta.
MAR: Ceftriaxone, Azithromycin, Metronidazole
Pneumonia, possible Aspiration Pneumonia
Leukocytosis
Mild hypoxic Respiratory Insufficiency. Currently on 2 L nasal cannula, wean oxygen as tolerated
Dry Heaves and diaphoresis 2/2 above now resolved
-continue coverage for CAP and possible aspiration pneumonia with Ceftriaxone/Azithro + Flagyl
-follow up cultures
-mucinex, acapella
-patient will need follow up CXR. Consider chest CT/ Pulmonary consult if no improvement despite antibiotics.
Speech evaluated, patient refused VSE to rule out silent aspiration. Per speech okay to continue regular. monitor
Former Smoker
COPD
-mild wheezing on exam
-continue CUSTOMS ENTRY CLERK inhaler
-standing duonebs, and duonebs PRN
-wean O2 as able
CKD III
-creatinine at baseline
Atrial Fibrillation on Eliquis
-continue CUSTOMS ENTRY CLERK Eliquis
Essential HTN
-CUSTOMS ENTRY CLERK Hydralazine, Amlodipine
-CUSTOMS ENTRY CLERK Indapmide. Recent TTE 01/31/25 with normal systolic function, no significant valvular disease
-CUSTOMS ENTRY CLERK Spironolactone
NIDDM
-patient's Metformin recently stopped for diarrhea and his Glimepiride was increased to 2mg PO BID
-will order 1mg PO QD in hospital with ISS low
A1c 7.1
DVT PPx Eliquis
DNR - confirmed on admission
Anticipated Discharge: 24 - 48 hours
Subjective/Interval History
-
Date of Service: June 21, 2025
Denies pain
Objective Data
-
Labs:
Laboratory Results
06/21/25
07:38
WBC 11.7 H
Hgb 11.9 L
Hct 35.8 L
Plt Count 273
Sodium 139
Potassium 4.3
Chloride 106
Carbon Dioxide 26
BUN 29 H
Creatinine 2.2 H
Glucose 130 H
Calcium 8.9
Vital Signs:
Vital Signs
Temp Pulse Resp BP Pulse Ox
98.3 F 67 16 140/69 98
06/21/25 11:01 06/21/25 11:24 06/21/25 11:24 06/21/25 11:01 06/21/25 11:24
I&O
06/20/25 06/21/25 06/22/25
06:59 06:59 06:59
Intake Total 240 / 240
Output Total 300 / 300
Balance -60 / -60
--- NOTE | 2025-06-21 13:08 | PTCARENOTE ---
Addendum entered by Kerry Hunter RN 06/21/25 14:21:
pt's brought his Indapamide in. Bottle sent to pharmacy and label was placed on it so it could be scanned by nursing. Pt aware that the bottle will return to him upon discharge.
Original Note:
Took over care of pt at 11am. Pt offers no complaints. Pt educated on why he is receiving Insuln for his lunch blood sugar. Sitting in the chair eating lunch. Call watts in reach. at bedside.
[2025-06-21] MEDS: NON-FORMULARY ITEM 2.5 MG PO (14:18)
--- NOTE | 2025-06-21 15:09 | PN.CDI ---
CDI
- -
CDI:
Physician Documentation Request
Admit Date: 06/20/25 22:31
Dear Doctor,
Please review the following and provide your response in the progress notes.
Clinical Indicators:
Pt admitted with pneumonia, suspect aspiration
PMH--atrial fibrillation on eliquis
If possible, please provide further specificity regarding atrial fibrillation, such as:
Paroxysmal atrial fibrillation - terminates spontaneously or with intervention within 7 days of onset
Persistent atrial fibrillation - episodes of continuous AF that last more than 7 days and do not self-terminate
Permanent atrial fibrillation - when a decision has been made to accept the presence of AF and there is no further attempt to restore or maintain sinus rhythm
Other - please specify
Unable to further specify
Use of terms such as suspected, likely, concern for, or probable (associated with a specific diagnosis that is being evaluated, monitored, or treated as if it exists) are acceptable and can be coded in the inpatient setting, when documented at the
time of discharge.
Thank you,
Kaci KHAN, RN, CCDS
CDI Specialist
Please use your independent medical judgment in providing your response.
[2025-06-21 16:39] LABS: Glucose - Point of Care 132 mg/dl (70-99)
[2025-06-21] MEDS: ZITHROMAX 500 MG PO (19:45)
[2025-06-21] MEDS: ROCEPHIN 1000 MG IV (19:45)
[2025-06-21] MEDS: STERILE WATER FOR INJECTION 10 ML IV (19:51)
[2025-06-21] MEDS: LIPITOR 10 MG PO (21:04)
[2025-06-21 21:32] LABS: Glucose - Point of Care 178 mg/dl (70-99)
[2025-06-22 03:00] VITALS: BP 110/48
[2025-06-22 07:35] VITALS: BP 122/71
[2025-06-22 07:58] LABS: Glucose - Point of Care 161 mg/dl (70-99)
[2025-06-22] MEDS: ELIQUIS 2.5 MG PO (07:59)
[2025-06-22] MEDS: MUCINEX 600 MG PO (07:59)
[2025-06-22] MEDS: APRESOLINE 50 MG PO (07:59)
[2025-06-22] MEDS: NORVASC 5 MG PO (08:00)
[2025-06-22] MEDS: ZYLOPRIM 100 MG PO (08:00)
[2025-06-22] MEDS: FLAGYL 500 MG 100 IV (08:00)
[2025-06-22] MEDS: AMARYL 1 MG PO (08:00)
[2025-06-22] MEDS: NON-FORMULARY ITEM 2.5 MG PO (08:02)
[2025-06-22] MEDS: NOVOLOG FLEXPEN-LOW RESISTANCE 1 UNITS SC ×2 (08:03→12:02)
[2025-06-22] MEDS: SPIRIVA RESPIMAT 2.5 MCG 2 PUFF INH (08:18)
[2025-06-22] MEDS: STRIVERDI RESPIMAT 2 PUFF INH (08:18)
[2025-06-22] MEDS: DUONEB 3 ML INH ×2 (08:18→11:28)
[2025-06-22] MEDS: ALDACTONE 25 MG PO (08:50)
[2025-06-22 10:32] LABS: ALT (SGPT) 11 U/L (0-50); AST (SGOT) 18 U/L (17-59); Albumin 3.0 g/dl (3.5-5.0); Alkaline Phosphatase 62 U/L (38-126); Blood Urea Nitrogen 27 mg/dl (9-20); Calcium 7.3 mg/dl (8.4-10.2); Carbon Dioxide 19 mmol/L (22-30); Chloride 106 mmol/L (98-107); Estimated Creatinine Clearance 34 ml/min; Glucose 207 mg/dl (70-99); Potassium 4.0 mmol/L (3.5-5.1); Sodium 136 mmol/L (135-145); Total Protein 5.8 g/dl (6.3-8.2); eGFR 31.71
[2025-06-22 10:33] LABS: Hematocrit 31.5 % (39.0-52.0); Hemoglobin 10.1 g/dL (13.0-18.0); Mean Corp Hgb Conc. 32.1 g/dL (33.0-37.0); Mean Corpuscular Volume 103.6 fL (80.0-94.0); Nucleated Red Blood Cells % 0 % (-); Platelet Count 216 10^3/uL (130-400); Red Cell Dist. Width 13.7 % (11.5-14.5)
[2025-06-22 11:00] VITALS: BP 136/84
[2025-06-22 11:48] LABS: Glucose - Point of Care 172 mg/dl (70-99)
--- NOTE | 2025-06-22 11:49 | W.PN.HOSP.TC ---
Today's Communication/Plan
-
Monitor vitals
See plan
Switch antibiotics to oral
Replete calcium
Discharge today
Time in discharge 38 minutes
Assessment / Plan
Assessment / Plan
General: No Apparent Distress
Respiratory: Clear to auscultation, no wheezing
Cardiac: S1/S2 and Regular Rhythm
GI: Soft
Musculoskeletal: No Edema
Neuro: AO x 3
Psych: Calm
HEAD CT
IMPRESSION:
1. No CT evidence for acute intracranial hemorrhage or transcortical infarct.
2. SEVERE WHITE MATTER LEUKOARAIOSIS in the frontal and parietal lobes.
3. 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
4. Mild to moderate diffuse cerebral and cerebellar volume loss.
CXR
IMPRESSION:
1. Moderate ground-glass opacity throughout the left lower lobe and mild ground-glass opacity in the right lower lobe. Diagnostic possibilities are (1) left lower lobe pneumonia (possibly aspiration pneumonia), (2) an inflammatory
pneumonitis/pulmonary fibrosis, or (3) subsegmental atelectasis and scarring.
2. Severe hyperlucency in the upper lungs (probably severe emphysema).
3. Previous right upper lobe pulmonary wedge resection.
4. Mild cardiomegaly.
5. Severe calcific atherosclerotic plaque in the coronary arteries and thoracic aorta.
MAR: Ceftriaxone, Azithromycin, Metronidazole
Pneumonia, possible Aspiration Pneumonia
Leukocytosis
Mild hypoxic Respiratory Insufficiency. Weaned off oxygen. Ambulated with PT without oxygen and did well
Dry Heaves and diaphoresis 2/2 above now resolved
-continue coverage for CAP and possible aspiration pneumonia with Ceftriaxone/Azithro + Flagyl
-follow up cultures NGTD
-mucinex, acapella
-patient will need follow up CXR. Consider chest CT/ Pulmonary consult if no improvement despite antibiotics.
Speech evaluated, patient refused VSE to rule out silent aspiration. Per speech okay to continue regular. monitor
Former Smoker
COPD
-mild wheezing on exam
-continue RESTAURANT COOK inhaler
-standing duonebs, and duonebs PRN
-wean O2 as able
CKD III
-creatinine at baseline
paroxysmal Atrial Fibrillation on Eliquis
-continue RESTAURANT COOK Eliquis
Hypocalcemia
Replete
Essential HTN
-RESTAURANT COOK Hydralazine, Amlodipine
-RESTAURANT COOK Indapmide. Recent TTE 01/31/25 with normal systolic function, no significant valvular disease
-RESTAURANT COOK Spironolactone
NIDDM
-patient's Metformin recently stopped for diarrhea and his Glimepiride was increased to 2mg PO BID
-will order 1mg PO QD in hospital with ISS low
A1c 7.1
DVT PPx Eliquis
DNR - confirmed on admission
Anticipated Discharge: Today
Subjective/Interval History
-
Date of Service: June 22, 2025
Feeling better
Objective Data
-
Labs:
Laboratory Results
06/22/25
09:16
WBC 9.0
Hgb 10.1 L
Hct 31.5 L
Plt Count 216 D
Sodium 136
Potassium 4.0
Chloride 106
Carbon Dioxide 19 L
BUN 27 H
Creatinine 2.0 H
Glucose 207 H
Calcium 7.3 L D
Total Bilirubin 0.6
AST 18
ALT 11
Alkaline Phosphatase 62
Vital Signs:
Vital Signs
Temp Pulse Resp BP Pulse Ox
97.3 F 72 18 122/71 94
06/22/25 07:35 06/22/25 11:28 06/22/25 11:28 06/22/25 07:35 06/22/25 08:25
I&O
10/24/25 10/25/25 10/26/25
06:59 06:59 06:59
Intake Total 240 / 240 650 / 650
Output Total 300 / 300 400 / 400
Balance -60 / -60 250 / 250
--- NOTE | 2025-06-22 11:54 | W.DCSUMMARY ---
Discharge Summary
Discharge Data
Date of Admission: 06/20/25
Date of Discharge: 06/22/25
-
Pending Results: No
Hospital Course
89-year-old male with past medical history of smoking, COPD, CKD stage III, paroxysmal atrial fibrillation on Eliquis, hypertension, [id number] diabetes mellitus came to the hospital with hypoxic respiratory insufficiency secondary to
pneumonia which was likely thought was possibly aspiration related. Patient initially required oxygenation which was able to be weaned off prior to discharge. Patient was also evaluated by physical therapy who recommended home health. Patient was
also seen by speech therapy who recommended video swallow study however patient refused to rule out silent aspiration. Patient was then put on regular diet and he continued to do well. Since patient oxygen was weaned off and he was feeling better,
he was then discharged home on oral antibiotics with instructions to follow-up with all his physicians outpatient. On discharge he was also instructed to get repeat chest x-ray in 3 to 4 weeks with primary care provider.
Discharge Plan
-
Patient Disposition: Home (Routine Discharge)
Discharge Diagnosis/Procedures: Pneumonia
Hypocalcemia
Condition: Fair
Diet: As tolerated
Activity: As tolerated
Driving Restrictions: As prior to admission
Bathing Restrictions: None
Others Tests: Repeat chest x-ray in 3 to 4 weeks with primary care provider
Referrals:
Jesse Melgar MD [Family Provider, Family Practice] - in less than 1 week
Prescriptions:
New
guaifenesin 600 mg Tablet Extended Release 12hr
600 mg PO Q12 Qty: 14 0RF
albuterol sulfate [Ventolin HFA] 90 mcg/actuation HFA aerosol inhaler
2 puff inhalation Q6H PRN (Reason: shortness of breath or wheezing) Qty: 8.5 0RF
amoxicillin-pot clavulanate 875-125 mg tablet
1 tab PO Q12H Qty: 8 0RF
doxycycline hyclate 100 mg tablet
100 mg PO BID Qty: 8 0RF
Continued
losartan 50 MG tablet
50 mg PO DAILY
allopurinol 100 MG tablet
100 mg PO DAILY
spironolactone 25 MG tablet
25 mg PO DAILY
glimepiride 2 MG tablet
2 mg PO BID
simvastatin 20 MG tablet
20 mg PO HS
hydralazine 50 MG tablet
50 mg PO BID
Eliquis 2.5 MG tablet
2.5 mg PO BID
indapamide 2.5 mg Tablet
2.5 mg PO DAILY
amlodipine 5 mg Tablet
5 mg PO DAILY
tramadol 50 mg Tablet
50 mg DAILY
Bevespi Aerosphere 9-4.8 mcg Hfa Aerosol Inhaler
2 puff INHALATION BID
Discharge Orders:
Discharge Patient (As Directed); Ordered 06/22/25
Ordered By: Nelson Whitfield
Discharge Date and Time
Discharge Date/Time: 06/22/25 13:10
Print Language: AZERBAIJANI
[2025-06-22] MEDS: CALCIUM GLUCONATE 100 IV (12:02)
--- NOTE | 2025-06-22 12:59 | CM ---
Met with patient at bedside
[facility] [id number]
IMM benefit explained; form signed @ 1230
Lives w/ ; one floor condo
Independent with ADLs; ambulates w/ Cane; has a rolling walker if needed
DME: [employer]
will transport
No recent SNF or Home Health utilization history
PT recommended Home Health; agency options identified; preference is [facility]; referral sent via [facility]
Plan: Discharge to home w/ home health services
== END 2025-06-22 13:10 | disposition home health service (06) | DRG 179 ==
LOC: 4 WEST ACU 22:31
PROVIDERS: ADMITTING PHYSICIAN Student in an Organized Health Care Education/Training Program; ATTENDING PHYSICIAN Internal Medicine; EMERGENCY PHYSICIAN Emergency Medicine; FAMILY PHYSICIAN Family Medicine
DX: J69.0 Pneumonitis due to inhalation of food and vomit (principal); Z87.891 Personal history of nicotine dependence; I48.0 Paroxysmal atrial fibrillation; R09.02 Hypoxemia; R06.89 Other abnormalities of breathing; I12.9 Hypertensive chronic kidney disease with stage 1 through stage 4 chronic kidney disease, or unspecified chronic kidney disease; E11.22 Type 2 diabetes mellitus with diabetic chronic kidney disease; N18.30 Chronic kidney disease, stage 3 unspecified; Z66 Do not resuscitate; E83.51 Hypocalcemia; I25.10 Atherosclerotic heart disease of native coronary artery without angina pectoris; Z79.01 Long term (current) use of anticoagulants; Z79.899 Other long term (current) drug therapy; Z86.73 Personal history of transient ischemic attack (TIA), and cerebral infarction without residual deficits; Z11.52 Encounter for screening for COVID-19
CPT/HCPCS: 70450; 71046; 80048; 80053; 82962; 83036; 83605; 83735; 83880; 84443; 85025; 87040; 87502; 87811; 92610; 93005; 94640; 96374; 96375; 97163; 97167; 99285

== ENCOUNTER → 2025-07-10 10:38 | Outpatient (REF) | payer OTHER, SELFPAY | LOC: HWRAD 10:38 | PROVIDERS: ATTENDING PHYSICIAN Family Medicine | DX: J15.9 Unspecified bacterial pneumonia (principal) | CPT/HCPCS: 71046 ==